=== PATIENT | female | born 1940 | race African-American/Black ===

== ENCOUNTER 2016-11-17 16:17 | Inpatient (IN) | payer MEDICARE, MEDICAID ==
[~2016-11-17] VITALS: Ht 167.6 cm; Wt 113.2 kg
[~2016-11-17 16:17] MED LIST: CARV6.2548 PO; DIGO125T82 PO; IOHEXOL-350 100 ML BOTTLE ONE; OMEP20CA10 PO; SIMV20TA6 PO; SODIUM CHLORIDE 0.9% 10ML VIAL ONE; SPIR25TA4 PO; WARF4TAB39 PO
[2016-11-17 16:30] VITALS: BP 135/107
[2016-11-17 16:57] VITALS: BP 135/107
[2016-11-17] MEDS ORDERED: CARV12.545 PO (17:04)
[2016-11-17] MEDS ORDERED: IPRATROPIUM/ALBUTEROL 0.5-3(2.5)MG/3ML NEB HHN PRN (17:15)
[2016-11-17] MEDS: CARVEDILOL 12.5MG TABLET PO SCH ×2 (18:48→21:00)
[2016-11-17 19:35] LABS: D-DIMER 2.51 mg/L FEU (<0.50); INR 1.6; PROTHROMBIN TIME 16.8 sec
[2016-11-17 19:40] LABS: BASOPHILS % 0.3 % (0.0-2.0); EOSINOPHILS % 0.3 % (0.0-5.0); HEMATOCRIT. 47.7 % (36.0-48.0); HEMOGLOBIN. 15.7 g/dL (12.0-16.0); LYMPHOCYTES % 39.6 % (20.0-50.0); MEAN CORPUSCULAR HEMOGLOBIN 30.8 pg (28.0-32.0); MEAN CORPUSCULAR VOLUME 93.7 fL (81.0-99.0); MEAN PLATELET VOLUME 10.7 fl (7.4-10.4); MONOCYTES % 7.4 % (2.0-8.0); NEUTROPHILS % 52.4 % (40.0-76.0); PLATELET 126 x1000/uL (130-400); RED BLOOD CELL COUNT 5.09 mill/uL (4.2-5.4); RED CELL DISTRIBUTION WIDTH 13.8 % (11.6-14.6)
[2016-11-17 19:48] LABS: CARBON DIOXIDE 32 mEq/L (21-32); CHLORIDE 104 mEq/L (98-107); HDL CHOLESTEROL 42 mg/dL (40-59); LDL CHOLESTEROL 75 mg/dL (5-100); TROPONIN I 0.03 ng/mL (0.00-0.04)
[2016-11-17 20:00] VITALS: BP 97/58
[2016-11-17] MEDS ORDERED: WARFARIN SODIUM 4MG TABLET PO SCH (20:03)
[2016-11-17] MEDS ORDERED: MEDICATION NOT ON FORMULARY EA (Simvastatin 20 MG) PO SCH (21:00)
[2016-11-17] MEDS: ATORVASTATIN CALCIUM 10MG TABLET PO SCH (21:34)
[2016-11-17] MEDS ORDERED: WARFARIN SODIUM 2MG TABLET PO SCH (21:53)
[2016-11-18] VITALS: BP 90/67
[2016-11-18 00:09] LABS: CLARITY URINE CLEAR (CLEAR); COLOR URINE YELLOW (YELLOW); GLUCOSE URINE NEGATIVE (NEGATIVE); KETONES URINE NEGATIVE (NEGATIVE); LEUKOCYTE ESTERASE URINE NEGATIVE (NEGATIVE); NITRITE URINE NEGATIVE (NEGATIVE); OCCULT BLOOD URINE NEGATIVE (NEGATIVE); PH URINE 5.5 (4.5-8.0); PROTEIN URINE NEGATIVE (NEGATIVE); SPECIFIC GRAVITY URINE 1.011 (1.005-1.030); UROBILINOGEN URINE 0.2 E.U./dL (0.2-1.0)
[2016-11-18] MEDS ORDERED: WARFARIN SODIUM 2MG TABLET PO NR (01:12)
[2016-11-18] MEDS ORDERED: ENOXAPARIN 100MG/ML SYR SUBCUT SCH (01:30)
[2016-11-18 04:00] VITALS: BP 123/83
[2016-11-18] MEDS: OMEPRAZOLE 20MG CAPSULE EXTENDED RELEASE PO SCH (06:09)
[2016-11-18 06:10] LABS: INR 1.7
[2016-11-18 07:53] LABS: BASOPHILS % 0.3 % (0.0-2.0); EOSINOPHILS % 0.5 % (0.0-5.0); HEMATOCRIT. 46.8 % (36.0-48.0); HEMOGLOBIN. 15.4 g/dL (12.0-16.0); LYMPHOCYTES % 48.4 % (20.0-50.0); MEAN CORPUSCULAR HEMOGLOBIN 30.7 pg (28.0-32.0); MEAN CORPUSCULAR VOLUME 93.3 fL (81.0-99.0); MEAN PLATELET VOLUME 11.3 fl (7.4-10.4); MONOCYTES % 7.6 % (2.0-8.0); NEUTROPHILS % 43.2 % (40.0-76.0); PLATELET 131 x1000/uL (130-400); RED BLOOD CELL COUNT 5.02 mill/uL (4.2-5.4)
[2016-11-18 07:59] LABS: CARBON DIOXIDE 28 mEq/L (21-32); CHLORIDE 104 mEq/L (98-107)
[2016-11-18 08:00] VITALS: BP 115/73
[2016-11-18 08:46] LABS: BG BASE EXCESS 1.6 mmol/L (-2.0-2.0); BG CARBOXYHEMOGLOBIN 0.8 % (0.5-1.5); BG DEOXYHEMOGLOBIN 1.8 % (0.0-5.0); BG FRACTION INSPIRED OXYGEN 28; BG METHEMOGLOBIN 0.4 % (0.0-1.5); BG OXYGEN SATURATION 98.2 % (92.0-98.5); BG PCO2 56.4 mmHg (35.0-45.0); BG PH 7.329 (7.350-7.450); BG PO2 118.4 mmHg (75.0-100.0); BG SAMPLE SITE RIGHT BRACHIAL; BG TOTAL HEMOGLOBIN 16.1 g/dL (12.0-18.0); BG VENT MODE NASAL CANNULA
[2016-11-18] MEDS: SPIRONOLACTONE 25MG TABLET PO SCH (08:56)
[2016-11-18] MEDS: CARVEDILOL 12.5MG TABLET PO SCH ×2 (08:57→20:28)
[2016-11-18 12:00] VITALS: BP 110/67
[2016-11-18 16:00] VITALS: BP 111/70
[2016-11-18] MEDS: APIXABAN 5 MG TABLET PO SCH (16:56)
[2016-11-18 20:00] VITALS: BP 105/67
[2016-11-18] MEDS: ATORVASTATIN CALCIUM 10MG TABLET PO SCH (20:27)
[2016-11-19] VITALS: BP 143/80
[2016-11-19 04:00] VITALS: BP 122/83
[2016-11-19] MEDS: OMEPRAZOLE 20MG CAPSULE EXTENDED RELEASE PO SCH (05:45)
[2016-11-19 07:10] LABS: BASOPHILS % 0.5 % (0.0-2.0); EOSINOPHILS % 1.2 % (0.0-5.0); HEMATOCRIT. 44.8 % (36.0-48.0); HEMOGLOBIN. 14.9 g/dL (12.0-16.0); LYMPHOCYTES % 57.5 % (20.0-50.0); MEAN CORPUSCULAR HEMOGLOBIN 31.1 pg (28.0-32.0); MEAN CORPUSCULAR VOLUME 93.5 fL (81.0-99.0); MEAN PLATELET VOLUME 10.9 fl (7.4-10.4); MONOCYTES % 10.3 % (2.0-8.0); NEUTROPHILS % 30.5 % (40.0-76.0); PLATELET 113 x1000/uL (130-400); RED BLOOD CELL COUNT 4.79 mill/uL (4.2-5.4)
[2016-11-19 08:00] VITALS: BP 105/79
[2016-11-19 08:33] LABS: CARBON DIOXIDE 27 mEq/L (21-32); CHLORIDE 103 mEq/L (98-107); TROPONIN I 0.02 ng/mL (0.00-0.04)
[2016-11-19] MEDS: SPIRONOLACTONE 25MG TABLET PO SCH (08:35)
[2016-11-19] MEDS: CARVEDILOL 12.5MG TABLET PO SCH ×2 (08:36→20:48)
[2016-11-19] MEDS: APIXABAN 5 MG TABLET PO SCH ×2 (08:36→16:45)
[2016-11-19 16:00] VITALS: BP 103/64
[2016-11-19 20:00] VITALS: BP 125/81
[2016-11-19] MEDS: ATORVASTATIN CALCIUM 10MG TABLET PO SCH (20:48)
[2016-11-20] VITALS: BP 121/64
[2016-11-20 04:00] VITALS: BP 101/57
[2016-11-20 05:29] LABS: PROTHROMBIN TIME 20.5 sec
[2016-11-20] MEDS: OMEPRAZOLE 20MG CAPSULE EXTENDED RELEASE PO SCH (06:18)
[2016-11-20 06:26] LABS: CARBON DIOXIDE 31 mEq/L (21-32); CHLORIDE 99 mEq/L (98-107)
[2016-11-20 06:37] LABS: BASOPHILS % 0.2 % (0.0-2.0); EOSINOPHILS % 0.6 % (0.0-5.0); HEMATOCRIT. 45.9 % (36.0-48.0); HEMOGLOBIN. 15.2 g/dL (12.0-16.0); LYMPHOCYTES % 9.9 % (20.0-50.0); MEAN CORPUSCULAR HEMOGLOBIN 31.2 pg (28.0-32.0); MEAN CORPUSCULAR VOLUME 94.1 fL (81.0-99.0); MEAN PLATELET VOLUME 11.1 fl (7.4-10.4); NEUTROPHILS % 81.3 % (40.0-76.0); PLATELET 108 x1000/uL (130-400); RED BLOOD CELL COUNT 4.87 mill/uL (4.2-5.4); RED CELL DISTRIBUTION WIDTH 14.1 % (11.6-14.6)
[2016-11-20 08:00] VITALS: BP 116/68
[2016-11-20] MEDS ORDERED: ONDANSETRON HCL 4MG/2ML VIAL IV PRN ×2 (08:15→10:30)
[2016-11-20] MEDS: APIXABAN 5 MG TABLET PO SCH ×2 (08:28→16:48)
[2016-11-20] MEDS: SPIRONOLACTONE 25MG TABLET PO SCH (08:28)
[2016-11-20] MEDS: ACETAMINOPHEN 500MG TABLET PO PRN ×2 (08:28→16:48)
[2016-11-20] MEDS: CARVEDILOL 12.5MG TABLET PO SCH ×2 (09:00→20:12)
[2016-11-20] MEDS ORDERED: ONDANSETRON HCL 4MG/2ML VIAL IV NR (10:30)
[2016-11-20 12:09] VITALS: BP 110/82
[2016-11-20 16:00] VITALS: BP 103/67
[2016-11-20] MEDS ORDERED: TRAMADOL 50MG TABLET PO PRN (18:15)
[2016-11-20 20:00] VITALS: BP 97/59
[2016-11-20] MEDS: ATORVASTATIN CALCIUM 10MG TABLET PO SCH (20:14)
[2016-11-21] VITALS (12 sets, daily range): BP systolic 85–141; BP diastolic 53–82
[2016-11-21] MEDS: OMEPRAZOLE 20MG CAPSULE EXTENDED RELEASE PO SCH (06:20)
[2016-11-21 06:42] LABS: INR 1.7; PROTHROMBIN TIME 17.4 sec
[2016-11-21 07:00] LABS: CARBON DIOXIDE 33 mEq/L (21-32); CHLORIDE 98 mEq/L (98-107)
[2016-11-21] MEDS: ACETAMINOPHEN 325MG TABLET PO PRN ×2 (07:14→18:15)
[2016-11-21 07:31] LABS: HEMATOCRIT. 46.4 % (36.0-48.0); HEMOGLOBIN. 15.4 g/dL (12.0-16.0); MEAN CORPUSCULAR HEMOGLOBIN 30.9 pg (28.0-32.0); MEAN CORPUSCULAR VOLUME 93.5 fL (81.0-99.0); MEAN PLATELET VOLUME 11.2 fl (7.4-10.4); PLATELET 97 x1000/uL (130-400); RED BLOOD CELL COUNT 4.97 mill/uL (4.2-5.4); RED CELL DISTRIBUTION WIDTH 13.9 % (11.6-14.6)
[2016-11-21] MEDS ORDERED: SODIUM CHLORIDE 0.9% 500 ML IV ONE (08:45)
[2016-11-21 09:05] LABS: PLATELET ESTIMATE DECREASED
[2016-11-21 09:44] LABS: BG BASE EXCESS -0.4 mmol/L (-2.0-2.0); BG CARBOXYHEMOGLOBIN 0.5 % (0.5-1.5); BG DEOXYHEMOGLOBIN 8.9 % (0.0-5.0); BG FRACTION INSPIRED OXYGEN 21; BG METHEMOGLOBIN 0.4 % (0.0-1.5); BG OXYHEMOGLOBIN 90.2 % (94.0-97.0); BG PH 7.343 (7.350-7.450); BG PO2 59.1 mmHg (75.0-100.0); BG SAMPLE SITE RIGHT RADIAL; BG TOTAL HEMOGLOBIN 15.4 g/dL (12.0-18.0); BG VENT MODE ROOM AIR
[2016-11-21] MEDS ORDERED: SODIUM POLYSTYRENE SULFONATE 15 G/60 ML BOT PO NR (10:00)
[2016-11-21] MEDS ORDERED: SODIUM CHLORIDE 0.45% 1,000 ML IV SCH (10:15)
[2016-11-21] MEDS: APIXABAN 5 MG TABLET PO SCH ×2 (10:35→18:03)
[2016-11-21] MEDS: DEXT 5%/0.9% NACL 1,000 ML IV SCH (12:52)
[2016-11-21] MEDS: PIPERACILLIN/TAZ 3.375G PREMIX 50 ML IV SCH ×3 (13:27→23:05)
[2016-11-21] MEDS: METRONIDAZOLE 500 MG PREMIX 100 ML IV SCH ×2 (15:56→21:26)
[2016-11-21] MEDS: ATORVASTATIN CALCIUM 10MG TABLET PO SCH (21:22)
[2016-11-22] VITALS (16 sets, daily range): BP systolic 75–120; BP diastolic 36–78
[2016-11-22] MEDS: DEXT 5%/0.9% NACL 1,000 ML IV SCH ×3 (01:44→17:14)
[2016-11-22] MEDS: PIPERACILLIN/TAZ 3.375G PREMIX 50 ML IV SCH ×4 (05:16→23:51)
[2016-11-22] MEDS: METRONIDAZOLE 500 MG PREMIX 100 ML IV SCH ×3 (06:01→21:06)
[2016-11-22 06:35] LABS: HEMATOCRIT. 42.9 % (36.0-48.0); HEMOGLOBIN. 14.3 g/dL (12.0-16.0); INR 1.6; MEAN CORPUSCULAR HEMOGLOBIN 31.1 pg (28.0-32.0); MEAN CORPUSCULAR VOLUME 93.3 fL (81.0-99.0); MEAN PLATELET VOLUME 10.6 fl (7.4-10.4); PLATELET 74 x1000/uL (130-400); PROTHROMBIN TIME 17.1 sec; RED CELL DISTRIBUTION WIDTH 13.8 % (11.6-14.6)
[2016-11-22] MEDS: ACETAMINOPHEN 325MG TABLET PO PRN (06:46)
[2016-11-22] MEDS: OMEPRAZOLE 20MG CAPSULE EXTENDED RELEASE PO SCH (06:46)
[2016-11-22 06:54] LABS: CARBON DIOXIDE 32 mEq/L (21-32); CHLORIDE 99 mEq/L (98-107)
[2016-11-22] MEDS: APIXABAN 5 MG TABLET PO SCH ×2 (08:52→17:14)
[2016-11-22 10:46] LABS: PLATELET ESTIMATE DECREASED
[2016-11-22 13:08] LABS: CLARITY URINE CLOUDY (CLEAR); COLOR URINE DARK YELLOW (YELLOW); GLUCOSE URINE NEGATIVE (NEGATIVE); KETONES URINE NEGATIVE (NEGATIVE); LEUKOCYTE ESTERASE URINE NEGATIVE (NEGATIVE); NITRITE URINE NEGATIVE (NEGATIVE); OCCULT BLOOD URINE NEGATIVE (NEGATIVE); PH URINE 5.5 (4.5-8.0); PROTEIN URINE 1+ (NEGATIVE); SPECIFIC GRAVITY URINE 1.031 (1.005-1.030); UROBILINOGEN URINE 0.2 E.U./dL (0.2-1.0)
[2016-11-22] MEDS: ATORVASTATIN CALCIUM 10MG TABLET PO SCH (21:05)
[2016-11-23] VITALS (12 sets, daily range): BP systolic 100–144; BP diastolic 53–90
[2016-11-23] MEDS: METRONIDAZOLE 500 MG PREMIX 100 ML IV SCH ×3 (06:04→21:18)
[2016-11-23] MEDS: OMEPRAZOLE 20MG CAPSULE EXTENDED RELEASE PO SCH (06:10)
[2016-11-23 06:31] LABS: CARBON DIOXIDE 30 mEq/L (21-32); CHLORIDE 105 mEq/L (98-107)
[2016-11-23 06:51] LABS: HEMOGLOBIN. 14.6 g/dL (12.0-16.0); MEAN CORPUSCULAR HEMOGLOBIN 30.9 pg (28.0-32.0); MEAN CORPUSCULAR VOLUME 93.1 fL (81.0-99.0); MEAN PLATELET VOLUME 10.7 fl (7.4-10.4); PLATELET 78 x1000/uL (130-400); RED BLOOD CELL COUNT 4.73 mill/uL (4.2-5.4); RED CELL DISTRIBUTION WIDTH 13.6 % (11.6-14.6)
[2016-11-23] MEDS: PIPERACILLIN/TAZ 3.375G PREMIX 50 ML IV SCH ×2 (07:24→12:14)
[2016-11-23] MEDS: APIXABAN 5 MG TABLET PO SCH ×2 (08:55→17:02)
[2016-11-23] MEDS: DEXT 5%/0.9% NACL 1,000 ML IV SCH (12:14)
[2016-11-23] MEDS: IPRATROPIUM/ALBUTEROL 0.5-3(2.5)MG/3ML NEB HHN SCH ×3 (12:24→21:23)
[2016-11-23 13:27] LABS: PLATELET ESTIMATE DECREASED
[2016-11-23] MEDS: CEFTRIAXONE 1 G PREMIX 50 ML IV SCH (15:56)
[2016-11-23] MEDS: ZINC OXIDE 20% OINT 30GM TOP SCH (17:03)
[2016-11-23] MEDS: ATORVASTATIN CALCIUM 10MG TABLET PO SCH (21:17)
[2016-11-23] MEDS: HYDROCORTISONE 2.5% RECTAL CREAM 30GM PR SCH (21:18)
[2016-11-24] VITALS (13 sets, daily range): BP systolic 107–140; BP diastolic 58–86
[2016-11-24] MEDS: IPRATROPIUM/ALBUTEROL 0.5-3(2.5)MG/3ML NEB HHN SCH ×6 (00:38→21:06)
[2016-11-24] MEDS: OMEPRAZOLE 20MG CAPSULE EXTENDED RELEASE PO SCH (06:37)
[2016-11-24] MEDS: METRONIDAZOLE 500 MG PREMIX 100 ML IV SCH ×2 (06:37→15:51)
[2016-11-24 07:19] LABS: CARBON DIOXIDE 32 mEq/L (21-32); CHLORIDE 106 mEq/L (98-107)
[2016-11-24] MEDS: APIXABAN 5 MG TABLET PO SCH ×2 (08:23→17:00)
[2016-11-24] MEDS: LACTOBACILLUS GG CAPSULE PO SCH (08:23)
[2016-11-24] MEDS: AZITHROMYCIN 500 MG TABLET PO SCH (08:23)
[2016-11-24] MEDS: HYDROCORTISONE 2.5% RECTAL CREAM 30GM PR SCH ×2 (08:24→20:58)
[2016-11-24] MEDS: ZINC OXIDE 20% OINT 30GM TOP SCH ×2 (08:24→17:00)
[2016-11-24] MEDS ORDERED: COLESEVELAM HCL 625MG TABLET PO SCH (09:00)
[2016-11-24] MEDS ORDERED: POTASSIUM CHLORIDE 20MEQ/PACKET PO NR (13:15)
[2016-11-24] MEDS: CEFTRIAXONE 1 G PREMIX 50 ML IV SCH (15:50)
[2016-11-24] MEDS ORDERED: BISMUTH SUBSALICYLATE 262 MG/15 ML-120ML BOTTLE PO PRN (18:30)
[2016-11-24] MEDS: ATORVASTATIN CALCIUM 10MG TABLET PO SCH (20:58)
[2016-11-25] VITALS: BP 135/83
[2016-11-25] MEDS: IPRATROPIUM/ALBUTEROL 0.5-3(2.5)MG/3ML NEB HHN SCH ×6 (00:05→20:32)
[2016-11-25] MEDS: DEXT 5%/0.9% NACL 1,000 ML IV SCH (02:52)
[2016-11-25 04:00] VITALS: BP 128/72
[2016-11-25 06:51] LABS: CARBON DIOXIDE 30 mEq/L (21-32); CHLORIDE 104 mEq/L (98-107)
[2016-11-25] MEDS: OMEPRAZOLE 20MG CAPSULE EXTENDED RELEASE PO SCH (07:10)
[2016-11-25 07:15] LABS: HEMATOCRIT. 42.8 % (36.0-48.0); HEMOGLOBIN. 14.2 g/dL (12.0-16.0); MEAN CORPUSCULAR HEMOGLOBIN 30.8 pg (28.0-32.0); MEAN CORPUSCULAR VOLUME 92.7 fL (81.0-99.0); MEAN PLATELET VOLUME 10.7 fl (7.4-10.4); PLATELET 72 x1000/uL (130-400); RED BLOOD CELL COUNT 4.62 mill/uL (4.2-5.4); RED CELL DISTRIBUTION WIDTH 13.7 % (11.6-14.6)
[2016-11-25 08:00] VITALS: BP 113/69
[2016-11-25] MEDS ORDERED: COLESEVELAM HCL 625MG TABLET PO SCH (09:00)
[2016-11-25] MEDS: APIXABAN 5 MG TABLET PO SCH ×2 (09:28→17:47)
[2016-11-25] MEDS: ZINC OXIDE 20% OINT 30GM TOP SCH ×2 (09:28→17:50)
[2016-11-25] MEDS: AZITHROMYCIN 500 MG TABLET PO SCH (09:28)
[2016-11-25] MEDS: LACTOBACILLUS GG CAPSULE PO SCH (09:28)
[2016-11-25] MEDS: CITALOPRAM HYDROBROMIDE 10MG TABLET PO SCH (09:28)
[2016-11-25] MEDS: HYDROCORTISONE 2.5% RECTAL CREAM 30GM PR SCH ×2 (09:29→21:52)
[2016-11-25] MEDS: TRAMADOL 50MG TABLET PO PRN ×2 (11:55→20:26)
[2016-11-25 12:00] VITALS: BP 135/83
[2016-11-25 12:56] LABS: PLATELET ESTIMATE DECREASED
[2016-11-25 16:00] VITALS: BP 141/103
[2016-11-25 20:00] VITALS: BP 134/88
[2016-11-25] MEDS: ATORVASTATIN CALCIUM 10MG TABLET PO SCH (20:22)
[2016-11-26] VITALS (7 sets, daily range): BP systolic 125–181; BP diastolic 79–119
[2016-11-26] MEDS: IPRATROPIUM/ALBUTEROL 0.5-3(2.5)MG/3ML NEB HHN SCH ×6 (00:35→21:18)
[2016-11-26] MEDS: DEXT 5%/0.9% NACL 1,000 ML IV SCH (04:28)
[2016-11-26] MEDS: OMEPRAZOLE 20MG CAPSULE EXTENDED RELEASE PO SCH (08:40)
[2016-11-26] MEDS: CITALOPRAM HYDROBROMIDE 10MG TABLET PO SCH (08:41)
[2016-11-26] MEDS: APIXABAN 5 MG TABLET PO SCH ×2 (08:42→17:46)
[2016-11-26] MEDS: AZITHROMYCIN 500 MG TABLET PO SCH (08:42)
[2016-11-26] MEDS: HYDROCORTISONE 2.5% RECTAL CREAM 30GM PR SCH ×2 (08:43→21:20)
[2016-11-26] MEDS: ZINC OXIDE 20% OINT 30GM TOP SCH ×2 (08:47→17:48)
[2016-11-26] MEDS: LACTOBACILLUS GG CAPSULE PO SCH (08:53)
[2016-11-26] MEDS: ATORVASTATIN CALCIUM 10MG TABLET PO SCH (21:20)
[2016-11-27] VITALS: BP 153/96
[2016-11-27] MEDS: IPRATROPIUM/ALBUTEROL 0.5-3(2.5)MG/3ML NEB HHN SCH ×6 (00:51→21:24)
[2016-11-27 04:00] VITALS: BP 133/76
[2016-11-27 06:51] LABS: BASOPHILS % 0.2 % (0.0-2.0); EOSINOPHILS % 0.3 % (0.0-5.0); HEMATOCRIT. 43.8 % (36.0-48.0); HEMOGLOBIN. 14.6 g/dL (12.0-16.0); LYMPHOCYTES % 49.1 % (20.0-50.0); MEAN CORPUSCULAR HEMOGLOBIN 30.8 pg (28.0-32.0); MEAN CORPUSCULAR VOLUME 92.4 fL (81.0-99.0); MEAN PLATELET VOLUME 10.5 fl (7.4-10.4); NEUTROPHILS % 39.4 % (40.0-76.0); PLATELET 93 x1000/uL (130-400); RED BLOOD CELL COUNT 4.75 mill/uL (4.2-5.4); RED CELL DISTRIBUTION WIDTH 13.8 % (11.6-14.6)
[2016-11-27] MEDS: OMEPRAZOLE 20MG CAPSULE EXTENDED RELEASE PO SCH (07:06)
[2016-11-27 08:00] VITALS: BP 150/90
[2016-11-27 08:11] LABS: CARBON DIOXIDE 28 mEq/L (21-32); CHLORIDE 105 mEq/L (98-107)
[2016-11-27] MEDS: ZINC OXIDE 20% OINT 30GM TOP SCH ×2 (09:00→17:00)
[2016-11-27] MEDS: LACTOBACILLUS GG CAPSULE PO SCH (09:48)
[2016-11-27] MEDS: APIXABAN 5 MG TABLET PO SCH ×2 (09:48→18:09)
[2016-11-27] MEDS: LEVOFLOXACIN 250MG TABLET PO SCH (09:49)
[2016-11-27] MEDS: HYDROCORTISONE 2.5% RECTAL CREAM 30GM PR SCH ×2 (09:49→20:49)
[2016-11-27] MEDS: CITALOPRAM HYDROBROMIDE 10MG TABLET PO SCH (09:49)
[2016-11-27 12:00] VITALS: BP 155/96
[2016-11-27 12:04] LABS: CLARITY URINE CLEAR (CLEAR); COLOR URINE YELLOW (YELLOW); GLUCOSE URINE NEGATIVE (NEGATIVE); KETONES URINE NEGATIVE (NEGATIVE); LEUKOCYTE ESTERASE URINE NEGATIVE (NEGATIVE); NITRITE URINE NEGATIVE (NEGATIVE); OCCULT BLOOD URINE NEGATIVE (NEGATIVE); PROTEIN URINE TRACE (NEGATIVE); SPECIFIC GRAVITY URINE 1.011 (1.005-1.030); UROBILINOGEN URINE 0.2 E.U./dL (0.2-1.0)
[2016-11-27 16:00] VITALS: BP 144/84
[2016-11-27 20:00] VITALS: BP 152/90
[2016-11-27] MEDS: ATORVASTATIN CALCIUM 10MG TABLET PO SCH (20:46)
[2016-11-28] VITALS: BP 141/88
[2016-11-28] MEDS: IPRATROPIUM/ALBUTEROL 0.5-3(2.5)MG/3ML NEB HHN SCH ×5 (01:16→21:24)
[2016-11-28 04:00] VITALS: BP 163/88
[2016-11-28 06:03] LABS: HEMATOCRIT. 42.2 % (36.0-48.0); MEAN CORPUSCULAR HEMOGLOBIN 30.7 pg (28.0-32.0); MEAN CORPUSCULAR VOLUME 92.3 fL (81.0-99.0); MEAN PLATELET VOLUME 10.5 fl (7.4-10.4); PLATELET 105 x1000/uL (130-400); RED BLOOD CELL COUNT 4.57 mill/uL (4.2-5.4); RED CELL DISTRIBUTION WIDTH 13.8 % (11.6-14.6)
[2016-11-28] MEDS: OMEPRAZOLE 20MG CAPSULE EXTENDED RELEASE PO SCH (06:34)
[2016-11-28 07:43] LABS: CARBON DIOXIDE 31 mEq/L (21-32); CHLORIDE 102 mEq/L (98-107)
[2016-11-28 08:00] VITALS: BP 129/79
[2016-11-28] MEDS ORDERED: POTASSIUM CHLORIDE 20MEQ TABLET SR PO SCH (08:15)
[2016-11-28] MEDS ORDERED: FLUCONAZOLE 150MG TABLET PO SCH (09:00)
[2016-11-28] MEDS ORDERED: MAGNESIUM 1 G PREMIX 100 ML IV SCH (09:00)
[2016-11-28] MEDS: APIXABAN 5 MG TABLET PO SCH ×2 (09:37→16:52)
[2016-11-28] MEDS: SPIRONOLACTONE 25MG TABLET PO SCH (09:37)
[2016-11-28] MEDS: HYDROCORTISONE 2.5% RECTAL CREAM 30GM PR SCH ×2 (09:55→21:30)
[2016-11-28] MEDS: LACTOBACILLUS GG CAPSULE PO SCH (10:06)
[2016-11-28] MEDS ORDERED: FUROSEMIDE 40MG TABLET PO SCH (11:15)
[2016-11-28] MEDS ORDERED: CARVEDILOL 3.125 MG TABLET PO ONE (11:15)
[2016-11-28] MEDS: ZINC OXIDE 20% OINT 30GM TOP SCH ×2 (11:23→16:53)
[2016-11-28] MEDS: POTASSIUM CHLORIDE 20MEQ TABLET SR PO SCH ×2 (11:23→16:52)
[2016-11-28] MEDS: CITALOPRAM HYDROBROMIDE 10MG TABLET PO SCH (11:24)
[2016-11-28] MEDS: LEVOFLOXACIN 250MG TABLET PO SCH (11:24)
[2016-11-28] MEDS ORDERED: CLONIDINE 0.1MG TABLET PO PRN (11:30)
[2016-11-28 12:02] VITALS: BP 141/80
[2016-11-28 13:43] LABS: PLATELET ESTIMATE DECREASED
[2016-11-28 16:00] VITALS: BP 142/91
[2016-11-28 20:00] VITALS: BP 155/98
[2016-11-28] MEDS: ATORVASTATIN CALCIUM 10MG TABLET PO SCH (21:29)
[2016-11-28] MEDS: FUROSEMIDE 40MG TABLET PO SCH (21:29)
[2016-11-28] MEDS: CARVEDILOL 3.125 MG TABLET PO SCH (21:29)
[2016-11-29] VITALS: BP 134/86
[2016-11-29] MEDS: IPRATROPIUM/ALBUTEROL 0.5-3(2.5)MG/3ML NEB HHN SCH ×6 (01:07→21:22)
[2016-11-29 04:00] VITALS: BP 117/67
[2016-11-29 05:59] LABS: CARBON DIOXIDE 30 mEq/L (21-32); CHLORIDE 100 mEq/L (98-107)
[2016-11-29] MEDS: OMEPRAZOLE 20MG CAPSULE EXTENDED RELEASE PO SCH (06:39)
[2016-11-29 07:59] LABS: BASOPHILS % 0.1 % (0.0-2.0); EOSINOPHILS % 0.4 % (0.0-5.0); HEMOGLOBIN. 13.9 g/dL (12.0-16.0); LYMPHOCYTES % 39.6 % (20.0-50.0); MEAN CORPUSCULAR HEMOGLOBIN 30.9 pg (28.0-32.0); MEAN CORPUSCULAR VOLUME 91.4 fL (81.0-99.0); MEAN PLATELET VOLUME 10.8 fl (7.4-10.4); MONOCYTES % 12.3 % (2.0-8.0); NEUTROPHILS % 47.6 % (40.0-76.0); PLATELET 106 x1000/uL (130-400); RED BLOOD CELL COUNT 4.48 mill/uL (4.2-5.4)
[2016-11-29 08:00] VITALS: BP 134/93
[2016-11-29] MEDS: HYDROCORTISONE 2.5% RECTAL CREAM 30GM PR SCH ×2 (09:00→21:00)
[2016-11-29] MEDS: LACTOBACILLUS GG CAPSULE PO SCH (09:13)
[2016-11-29] MEDS: FUROSEMIDE 40MG TABLET PO SCH ×2 (09:14→21:50)
[2016-11-29] MEDS: POTASSIUM CHLORIDE 20MEQ TABLET SR PO SCH ×2 (09:14→18:18)
[2016-11-29] MEDS: SPIRONOLACTONE 25MG TABLET PO SCH (09:14)
[2016-11-29] MEDS: CARVEDILOL 3.125 MG TABLET PO SCH ×2 (09:14→21:50)
[2016-11-29] MEDS: ZINC OXIDE 20% OINT 30GM TOP SCH ×2 (09:15→18:19)
[2016-11-29] MEDS ORDERED: MAGNESIUM 2 G PREMIX 50 ML IV NR (10:00)
[2016-11-29] MEDS: LEVOFLOXACIN 250MG TABLET PO SCH (11:26)
[2016-11-29 12:00] VITALS: BP 136/88
[2016-11-29] MEDS: CITALOPRAM HYDROBROMIDE 10MG TABLET PO SCH (12:12)
[2016-11-29 16:00] VITALS: BP 129/98
[2016-11-29 20:00] VITALS: BP 147/90
[2016-11-29] MEDS: ATORVASTATIN CALCIUM 10MG TABLET PO SCH (21:49)
[2016-11-30] VITALS: BP 168/95
[2016-11-30] MEDS: IPRATROPIUM/ALBUTEROL 0.5-3(2.5)MG/3ML NEB HHN SCH ×6 (01:21→21:24)
[2016-11-30 04:00] VITALS: BP 111/61
[2016-11-30] MEDS: OMEPRAZOLE 20MG CAPSULE EXTENDED RELEASE PO SCH (05:40)
[2016-11-30 08:00] VITALS: BP 98/58
[2016-11-30 08:30] VITALS: BP 115/74
[2016-11-30] MEDS: ZINC OXIDE 20% OINT 30GM TOP SCH ×2 (09:00→17:00)
[2016-11-30] MEDS: CARVEDILOL 3.125 MG TABLET PO SCH ×2 (09:00→21:05)
[2016-11-30] MEDS: HYDROCORTISONE 2.5% RECTAL CREAM 30GM PR SCH ×2 (09:00→21:00)
[2016-11-30] MEDS: SPIRONOLACTONE 25MG TABLET PO SCH (09:21)
[2016-11-30] MEDS: POTASSIUM CHLORIDE 20MEQ TABLET SR PO SCH (09:21)
[2016-11-30] MEDS: FUROSEMIDE 40MG TABLET PO SCH (09:22)
[2016-11-30] MEDS: CITALOPRAM HYDROBROMIDE 10MG TABLET PO SCH (09:22)
[2016-11-30] MEDS: LACTOBACILLUS GG CAPSULE PO SCH (09:22)
[2016-11-30] MEDS: LEVOFLOXACIN 250MG TABLET PO SCH (10:53)
[2016-11-30 12:00] VITALS: BP 131/85
[2016-11-30] MEDS ORDERED: APIXABAN 5 MG TABLET PO SCH (17:00)
[2016-11-30] MEDS: APIXABAN 5 MG TABLET PO SCH ×2 (17:29→17:31)
[2016-11-30 20:00] VITALS: BP 119/76
[2016-11-30] MEDS: ATORVASTATIN CALCIUM 10MG TABLET PO SCH (21:05)
[2016-12-01] VITALS (7 sets, daily range): BP systolic 89–125; BP diastolic 16–84
[2016-12-01] MEDS: IPRATROPIUM/ALBUTEROL 0.5-3(2.5)MG/3ML NEB HHN SCH ×6 (01:23→20:58)
[2016-12-01] MEDS: OMEPRAZOLE 20MG CAPSULE EXTENDED RELEASE PO SCH (05:37)
[2016-12-01 08:13] LABS: CARBON DIOXIDE 31 mEq/L (21-32); CHLORIDE 96 mEq/L (98-107)
[2016-12-01] MEDS: HYDROCORTISONE 2.5% RECTAL CREAM 30GM PR SCH (09:00)
[2016-12-01] MEDS: ZINC OXIDE 20% OINT 30GM TOP SCH ×2 (09:00→17:00)
[2016-12-01] MEDS: CITALOPRAM HYDROBROMIDE 10MG TABLET PO SCH (09:35)
[2016-12-01] MEDS: CARVEDILOL 3.125 MG TABLET PO SCH (09:36)
[2016-12-01] MEDS: LACTOBACILLUS GG CAPSULE PO SCH (09:36)
[2016-12-01] MEDS: SPIRONOLACTONE 25MG TABLET PO SCH (09:36)
[2016-12-01] MEDS: APIXABAN 5 MG TABLET PO SCH ×2 (09:37→17:47)
[2016-12-01] MEDS: LEVOFLOXACIN 250MG TABLET PO SCH (11:04)
[2016-12-01 11:29] LABS: GLUCOSE URINE NEGATIVE (NEGATIVE); KETONES URINE NEGATIVE (NEGATIVE); LEUKOCYTE ESTERASE URINE NEGATIVE (NEGATIVE); NITRITE URINE NEGATIVE (NEGATIVE); OCCULT BLOOD URINE 3+ (NEGATIVE); PROTEIN URINE TRACE (NEGATIVE); SPECIFIC GRAVITY URINE 1.009 (1.005-1.030); UROBILINOGEN URINE 0.2 E.U./dL (0.2-1.0)
[2016-12-01 11:51] LABS: CLARITY URINE CLOUDY (CLEAR); COLOR URINE DARK YELLOW (YELLOW)
[2016-12-01] MEDS ORDERED: MAGNESIUM 2 G PREMIX 50 ML IV NR (19:00)
[2016-12-07] MEDS ORDERED: APIXABAN 5 MG TABLET PO SCH (09:00)
== END 2016-12-01 21:45 | DRG 871 ==
LOC: 5WST 16:17 → 5EST 11-21 12:29 → 5WST 11-24 23:12
PROVIDERS: ADMIT Internal Medicine; ATTEND Internal Medicine
DX: A41.9 Sepsis, unspecified organism (principal); I26.99 Other pulmonary embolism without acute cor pulmonale; J18.1 Lobar pneumonia, unspecified organism; J96.01 Acute respiratory failure with hypoxia; R65.21 Severe sepsis with septic shock; I50.22 Chronic systolic (congestive) heart failure; I42.0 Dilated cardiomyopathy; I27.82 Chronic pulmonary embolism; Z68.41 Body mass index [BMI] 40.0-44.9, adult; I48.1 Persistent atrial fibrillation; I82.91 Chronic embolism and thrombosis of unspecified vein; J44.0 Chronic obstructive pulmonary disease with (acute) lower respiratory infection; J44.1 Chronic obstructive pulmonary disease with (acute) exacerbation; N39.0 Urinary tract infection, site not specified; I25.5 Ischemic cardiomyopathy; I27.2 Other secondary pulmonary hypertension; I49.5 Sick sinus syndrome; T50.905A Adverse effect of unspecified drugs, medicaments and biological substances, initial encounter; F41.9 Anxiety disorder, unspecified; M19.90 Unspecified osteoarthritis, unspecified site; I11.0 Hypertensive heart disease with heart failure; D69.59 Other secondary thrombocytopenia; E83.42 Hypomagnesemia; E66.01 Morbid (severe) obesity due to excess calories; E78.5 Hyperlipidemia, unspecified; I73.9 Peripheral vascular disease, unspecified; E87.5 Hyperkalemia; E87.6 Hypokalemia; F32.9 Major depressive disorder, single episode, unspecified; I25.10 Atherosclerotic heart disease of native coronary artery without angina pectoris; I25.2 Old myocardial infarction; Z79.01 Long term (current) use of anticoagulants; Z95.810 Presence of automatic (implantable) cardiac defibrillator; Z79.899 Other long term (current) drug therapy; Z82.49 Family history of ischemic heart disease and other diseases of the circulatory system; Z86.73 Personal history of transient ischemic attack (TIA), and cerebral infarction without residual deficits; Z87.891 Personal history of nicotine dependence; Y92.89 Other specified places as the place of occurrence of the external cause
CPT/HCPCS: 36415; 36600; 70450; 71010; 71020; 71275; 80048; 80061; 81001; 81003; 82375; 82805; 83735; 83880; 84484; 85025; 85362; 85379; 85384; 85610; 85730; 87040; 87070; 87086; 87106; 87186; 87493; 87536; 93005; 93306; 93970; 94640; 97116; 97162; 97164; 97530; A4216; A6261; J0696; J1650; J2405; J2543; J3475; J3490; J7030; J7040; J7042; J7050; J7620; Q9967

== ENCOUNTER 2019-09-03 10:37 | Inpatient (IN) | payer OTHER, MEDICAID ==
[~2019-09-03] VITALS: Ht 172.7 cm; Wt 118.8 kg
[2019-09-03] VITALS (21 sets, daily range): BP systolic 97–152; BP diastolic 57–97
[~2019-09-03 10:37] MED LIST changes: +CARV12.545 PO; -CARV6.2548 PO; -DIGO125T82 PO; -IOHEXOL-350 100 ML BOTTLE ONE; -OMEP20CA10 PO; +OMEP20CA14 PO; +SIMV-43 PO; -SIMV20TA6 PO; -SODIUM CHLORIDE 0.9% 10ML VIAL ONE; -SPIR25TA4 PO; +SPIR25TA6 PO; -WARF4TAB39 PO; +WARF4TAB71 PO
[2019-09-03] MEDS ORDERED: FUROSEMIDE 20MG/2ML VIAL IVP ONE (10:45)
[2019-09-03] MEDS ORDERED: LEVOFLOXACIN 500MG PREMIX 100 ML IV ONE (10:45)
[2019-09-03 11:12] LABS: BASOPHILS % 0.3 % (0.0-2.0); EOSINOPHILS % 0.6 % (0.0-5.0); HEMOGLOBIN. 17.4 g/dL (12.0-16.0); LYMPHOCYTES % 50.1 % (20.0-50.0); MEAN CORPUSCULAR HEMOGLOBIN 31.6 pg (28.0-32.0); MEAN PLATELET VOLUME 11.8 fl (7.4-10.4); MONOCYTES % 6.6 % (2.0-8.0); NEUTROPHILS % 42.4 % (40.0-76.0); PLATELET 110 x1000/uL (130-400); RED BLOOD CELL COUNT 5.51 mill/uL (4.2-5.4); RED CELL DISTRIBUTION WIDTH 16.8 % (11.6-14.6)
[2019-09-03 11:17] LABS: INR 1.2; PROTHROMBIN TIME 13.4 sec (9.6-11.0)
[2019-09-03 11:29] LABS: CHLORIDE 103 mEq/L (98-107)
[2019-09-03] MEDS ORDERED: SUCCINYLCHOLINE CHLORIDE 200MG/10ML IV ONE (12:15)
[2019-09-03] MEDS ORDERED: MIDAZOLAM 50 MG in DEXTROSE 5% WATER 50ML IV ONE (12:15)
[2019-09-03] MEDS ORDERED: NOREPINEPHRINE 4 MG in DEXTROSE 5% WATER 250 ML IV ONE (12:15)
[2019-09-03] MEDS ORDERED: MIDAZOLAM HCL 50 MG in DEXTROSE 5% WATER 40 ML IV ONE (12:15)
[2019-09-03] MEDS ORDERED: ETOMIDATE 2MG/ML 10ML VIAL IV ONE (12:15)
[2019-09-03] MEDS ORDERED: LORAZEPAM 2MG/ML CPJ IV ONE (12:30)
[2019-09-03 14:31] LABS: CLARITY URINE CLOUDY (CLEAR); COLOR URINE DARK YELLOW (YELLOW); KETONES URINE 1+ (NEGATIVE); LEUKOCYTE ESTERASE URINE NEGATIVE (NEGATIVE); NITRITE URINE NEGATIVE (NEGATIVE); OCCULT BLOOD URINE 2+ (NEGATIVE); PH URINE 5.5 (4.5-8.0); PROTEIN URINE 1+ (NEGATIVE); SPECIFIC GRAVITY URINE 1.025 (1.005-1.030)
[2019-09-03] MEDS ORDERED: DEXTROSE 50% WATER 50ML SYRINGE IV PRN (16:30)
[2019-09-03] MEDS ORDERED: NOREPINEPHRINE 4MG/250ML PMX 250 ML IV ONE (16:45)
[2019-09-03] MEDS: BLOOD SUGAR DIAGNOSTIC STRIP TEST SCH ×2 (17:30→20:46)
[2019-09-03] MEDS: MIDAZOLAM HCL 50 MG in DEXTROSE 5% WATER 40 ML IV PRN ×2 (17:51→21:31)
[2019-09-03] MEDS: DEXT 5%/0.45% NACL 1000ML 1,000 ML IV SCH (17:52)
[2019-09-03] MEDS: INSULIN LISPRO 100 UNITS/ML SUBCUT SCH ×2 (18:00→20:46)
[2019-09-03 18:13] LABS: BG BASE EXCESS 0.2 mmol/L (-2.0-2.0); BG CARBOXYHEMOGLOBIN 0.1 % (0.5-1.5); BG DEOXYHEMOGLOBIN 0.2 % (0.0-5.0); BG FRACTION INSPIRED OXYGEN 100; BG HCO3 ACT 23.2 mmol/L (22.0-26.0); BG METHEMOGLOBIN 0.3 % (0.0-1.5); BG OXYGEN SATURATION 99.8 % (92.0-98.5); BG OXYHEMOGLOBIN 99.4 % (94.0-97.0); BG PCO2 33.3 mmHg (35.0-45.0); BG PH 7.461 (7.350-7.450); BG PO2 525.7 mmHg (75.0-100.0); BG SAMPLE SITE RIGHT RADIAL; BG TIDAL VOLUME(mL) 600 mL; BG TOTAL HEMOGLOBIN 16.4 g/dL (12.0-18.0); BG VENT MODE VENT - A/C; BG VENT RATE 14 set
[2019-09-03] MEDS: CEFTRIAXONE 1 G PREMIX 50 ML IV SCH (18:39)
[2019-09-03] MEDS: NOREPINEPHRINE 4 MG in DEXT 5% WATER 246 ML IV PRN (19:00)
[2019-09-03 19:48] LABS: CHLORIDE 102 mEq/L (98-107)
[2019-09-03] MEDS: PANTOPRAZOLE SODIUM 40 MG/VIAL IV SCH (20:57)
[2019-09-03] MEDS ORDERED: ENOXAPARIN 30MG/0.3ML SYR SUBCUT SCH (21:00)
[2019-09-03] MEDS: ENOXAPARIN 120MG/0.8ML SYR SUBCUT SCH (21:03)
[2019-09-03] MEDS: IPRATROPIUM/ALBUTEROL 0.5-3(2.5)MG/3ML NEB HHN SCH (21:11)
[2019-09-03] MEDS ORDERED: APIX5TAB MT (23:13)
[2019-09-04] VITALS (81 sets, daily range): BP systolic 32–156; BP diastolic 17–102
[2019-09-04] MEDS: IPRATROPIUM/ALBUTEROL 0.5-3(2.5)MG/3ML NEB HHN SCH ×6 (00:48→21:34)
[2019-09-04] MEDS: DEXT 5%/0.45% NACL 1000ML 1,000 ML IV SCH ×3 (02:45→21:51)
[2019-09-04] MEDS: CEFTRIAXONE 1 G PREMIX 50 ML IV SCH (05:03)
[2019-09-04 06:05] LABS: BASOPHILS % 0.3 % (0.0-2.0); EOSINOPHILS % 0.2 % (0.0-5.0); HEMATOCRIT. 48.4 % (36.0-48.0); HEMOGLOBIN. 16.1 g/dL (12.0-16.0); LYMPHOCYTES % 22.9 % (20.0-50.0); MEAN CORPUSCULAR HEMOGLOBIN 32.1 pg (28.0-32.0); MEAN CORPUSCULAR VOLUME 96.3 fL (81.0-99.0); MEAN PLATELET VOLUME 11.5 fl (7.4-10.4); NEUTROPHILS % 65.6 % (40.0-76.0); PLATELET 81 x1000/uL (130-400); RED BLOOD CELL COUNT 5.03 mill/uL (4.2-5.4)
[2019-09-04 06:45] LABS: CHLORIDE 102 mEq/L (98-107)
[2019-09-04] MEDS: INSULIN LISPRO 100 UNITS/ML SUBCUT SCH ×4 (07:45→21:00)
[2019-09-04] MEDS: BLOOD SUGAR DIAGNOSTIC STRIP TEST SCH ×4 (07:45→21:51)
[2019-09-04] MEDS: PANTOPRAZOLE SODIUM 40 MG/VIAL IV SCH (08:21)
[2019-09-04] MEDS: ENOXAPARIN 120MG/0.8ML SYR SUBCUT SCH (09:00)
[2019-09-04] MEDS ORDERED: PNEUMOCOCCAL 23-VAL P-SAC VAC 0.5 ML IM ONE (12:00)
[2019-09-04] MEDS ORDERED: INFLUENZA VIRUS VACCINE(AFLURIA) 0.5ML SYR IM ONE (12:00)
[2019-09-04] MEDS: FUROSEMIDE 40MG/4ML VIAL IVP SCH (12:37)
[2019-09-04] MEDS: MIDAZOLAM HCL 50 MG in DEXTROSE 5% WATER 40 ML IV PRN (14:48)
[2019-09-04] MEDS: CEFTRIAXONE 1,000 MG in DEXTROSE 5% WATER 50 ML IV SCH (17:40)
[2019-09-04] MEDS: CARVEDILOL 6.25 MG TABLET PO SCH (21:00)
[2019-09-04] MEDS: ATORVASTATIN CALCIUM 20MG TABLET PO SCH (21:51)
[2019-09-05] VITALS (80 sets, daily range): BP systolic 40–167; BP diastolic 17–116
[2019-09-05] MEDS: IPRATROPIUM/ALBUTEROL 0.5-3(2.5)MG/3ML NEB HHN SCH ×7 (00:50→23:30)
[2019-09-05] MEDS: MIDAZOLAM HCL 50 MG in DEXTROSE 5% WATER 40 ML IV PRN ×2 (04:21→15:20)
[2019-09-05] MEDS: BLOOD SUGAR DIAGNOSTIC STRIP TEST SCH ×4 (05:32→23:19)
[2019-09-05] MEDS: INSULIN LISPRO 100 UNITS/ML SUBCUT SCH ×3 (05:32→17:43)
[2019-09-05] MEDS: CEFTRIAXONE 1,000 MG in DEXTROSE 5% WATER 50 ML IV SCH ×2 (05:34→17:10)
[2019-09-05 07:24] LABS: BASOPHILS % 0.2 % (0.0-2.0); EOSINOPHILS % 0.2 % (0.0-5.0); HEMATOCRIT. 48.9 % (36.0-48.0); LYMPHOCYTES % 19.9 % (20.0-50.0); MEAN CORPUSCULAR HEMOGLOBIN 31.5 pg (28.0-32.0); MEAN CORPUSCULAR VOLUME 96.3 fL (81.0-99.0); MONOCYTES % 10.2 % (2.0-8.0); NEUTROPHILS % 69.5 % (40.0-76.0); RED BLOOD CELL COUNT 5.08 mill/uL (4.2-5.4); RED CELL DISTRIBUTION WIDTH 16.1 % (11.6-14.6)
[2019-09-05 08:13] LABS: CHLORIDE 101 mEq/L (98-107)
[2019-09-05] MEDS: PANTOPRAZOLE SODIUM 40 MG/VIAL IV SCH (08:22)
[2019-09-05] MEDS: SPIRONOLACTONE 25MG TABLET PO SCH (08:22)
[2019-09-05] MEDS: CARVEDILOL 6.25 MG TABLET PO SCH ×2 (08:40→20:14)
[2019-09-05] MEDS: FUROSEMIDE 40MG/4ML VIAL IVP SCH ×2 (08:40→17:10)
[2019-09-05 09:19] LABS: PLATELET 78 x1000/uL (130-400)
[2019-09-05 10:21] LABS: BG BASE EXCESS 4.1 mmol/L (-2.0-2.0); BG DEOXYHEMOGLOBIN 2.1 % (0.0-5.0); BG FRACTION INSPIRED OXYGEN 30; BG HCO3 ACT 25.1 mmol/L (22.0-26.0); BG METHEMOGLOBIN 0.4 % (0.0-1.5); BG OXYGEN SATURATION 97.9 % (92.0-98.5); BG OXYHEMOGLOBIN 96.5 % (94.0-97.0); BG PCO2 28.3 mmHg (35.0-45.0); BG PH 7.565 (7.350-7.450); BG PO2 86.6 mmHg (75.0-100.0); BG SAMPLE SITE RIGHT RADIAL; BG TIDAL VOLUME(mL) 600 mL; BG TOTAL HEMOGLOBIN 15.8 g/dL (12.0-18.0); BG VENT MODE VENT - A/C; BG VENT RATE 14 set
[2019-09-05] MEDS: DEXT 5%/0.45% NACL 1000ML 1,000 ML IV SCH ×2 (10:43→21:35)
[2019-09-05] MEDS ORDERED: POTASSIUM CHLORIDE INJ 60 MEQ in DEXT 5% WATER 500 ML IV SCH (11:00)
[2019-09-05] MEDS ORDERED: MAGNESIUM 2 G PREMIX 50 ML IV SCH (11:00)
[2019-09-05] MEDS ORDERED: VANCOMYCIN 2,000 MG in DEXT 5% WATER 500 ML IV NR (21:30)
[2019-09-05] MEDS: ATORVASTATIN CALCIUM 20MG TABLET PO SCH (21:35)
[2019-09-05] MEDS: NOREPINEPHRINE 4 MG in DEXT 5% WATER 246 ML IV PRN (23:25)
[2019-09-06] VITALS (91 sets, daily range): BP systolic 56–124; BP diastolic 20–91
[2019-09-06] MEDS: MIDAZOLAM HCL 50 MG in DEXTROSE 5% WATER 40 ML IV PRN ×2 (00:44→15:31)
[2019-09-06] MEDS: IPRATROPIUM/ALBUTEROL 0.5-3(2.5)MG/3ML NEB HHN SCH ×5 (05:09→22:03)
[2019-09-06] MEDS: BLOOD SUGAR DIAGNOSTIC STRIP TEST SCH ×3 (05:21→16:41)
[2019-09-06] MEDS: CEFTRIAXONE 1,000 MG in DEXTROSE 5% WATER 50 ML IV SCH ×2 (05:21→16:41)
[2019-09-06] MEDS: INSULIN LISPRO 100 UNITS/ML SUBCUT SCH ×4 (05:30→17:01)
[2019-09-06 07:19] LABS: BASOPHILS % 0.3 % (0.0-2.0); EOSINOPHILS % 0.3 % (0.0-5.0); HEMATOCRIT. 45.7 % (36.0-48.0); HEMOGLOBIN. 15.3 g/dL (12.0-16.0); LYMPHOCYTES % 15.2 % (20.0-50.0); MEAN CORPUSCULAR HEMOGLOBIN 31.8 pg (28.0-32.0); MEAN CORPUSCULAR VOLUME 95.1 fL (81.0-99.0); MEAN PLATELET VOLUME 12.3 fl (7.4-10.4); MONOCYTES % 9.3 % (2.0-8.0); NEUTROPHILS % 74.9 % (40.0-76.0); PLATELET 74 x1000/uL (130-400); RED CELL DISTRIBUTION WIDTH 16.1 % (11.6-14.6)
[2019-09-06 07:21] LABS: INR 1.1
[2019-09-06 07:47] LABS: CHLORIDE 104 mEq/L (98-107)
[2019-09-06] MEDS: SPIRONOLACTONE 25MG TABLET PO SCH ×2 (09:00→15:31)
[2019-09-06] MEDS: CARVEDILOL 6.25 MG TABLET PO SCH ×2 (09:00→20:55)
[2019-09-06] MEDS: FUROSEMIDE 40MG/4ML VIAL IVP SCH ×2 (09:00→16:41)
[2019-09-06 09:10] LABS: BG BASE EXCESS 4.4 mmol/L (-2.0-2.0); BG CARBOXYHEMOGLOBIN 0.8 % (0.5-1.5); BG DEOXYHEMOGLOBIN 2.1 % (0.0-5.0); BG FRACTION INSPIRED OXYGEN 30; BG HCO3 ACT 25.6 mmol/L (22.0-26.0); BG METHEMOGLOBIN 0.3 % (0.0-1.5); BG OXYGEN SATURATION 97.9 % (92.0-98.5); BG OXYHEMOGLOBIN 96.8 % (94.0-97.0); BG PH 7.563 (7.350-7.450); BG PO2 90.4 mmHg (75.0-100.0); BG SAMPLE SITE RIGHT RADIAL; BG TIDAL VOLUME(mL) 600 mL; BG TOTAL HEMOGLOBIN 15.9 g/dL (12.0-18.0); BG VENT MODE VENT - A/C; BG VENT RATE 14 set
[2019-09-06] MEDS: PANTOPRAZOLE SODIUM 40 MG/VIAL IV SCH (09:28)
[2019-09-06] MEDS: VANCOMYCIN 1 G PREMIX 200 ML IV SCH ×2 (09:28→21:19)
[2019-09-06] MEDS ORDERED: POTASSIUM CHLORIDE INJ 60 MEQ in DEXT 5% WATER 500 ML IV ONE (10:00)
[2019-09-06] MEDS ORDERED: HYDRALAZINE 20MG/ML VIAL IV PRN (15:15)
[2019-09-06] MEDS: NOREPINEPHRINE 4 MG in DEXT 5% WATER 246 ML IV PRN (15:30)
[2019-09-06] MEDS ORDERED: FUROSEMIDE 40MG/4ML VIAL IVP NR (16:00)
[2019-09-06] MEDS: ATORVASTATIN CALCIUM 20MG TABLET PO SCH (21:18)
[2019-09-06] MEDS: DEXT 5%/0.45% NACL 1000ML 1,000 ML IV SCH (23:59)
[2019-09-07] VITALS (85 sets, daily range): BP systolic 48–133; BP diastolic 19–92
[2019-09-07] MEDS: BLOOD SUGAR DIAGNOSTIC STRIP TEST SCH ×4 (00:33→18:09)
[2019-09-07] MEDS: IPRATROPIUM/ALBUTEROL 0.5-3(2.5)MG/3ML NEB HHN SCH ×6 (01:34→21:42)
[2019-09-07] MEDS: MIDAZOLAM HCL 50 MG in DEXTROSE 5% WATER 40 ML IV PRN (03:20)
[2019-09-07] MEDS: INSULIN LISPRO 100 UNITS/ML SUBCUT SCH ×4 (06:00→18:00)
[2019-09-07] MEDS: NOREPINEPHRINE 4 MG in DEXT 5% WATER 246 ML IV PRN ×2 (06:05→13:57)
[2019-09-07] MEDS: CEFTRIAXONE 1,000 MG in DEXTROSE 5% WATER 50 ML IV SCH (06:06)
[2019-09-07 06:21] LABS: BASOPHILS % 0.2 % (0.0-2.0); EOSINOPHILS % 0.4 % (0.0-5.0); HEMATOCRIT. 45.4 % (36.0-48.0); LYMPHOCYTES % 17.4 % (20.0-50.0); MEAN CORPUSCULAR HEMOGLOBIN 31.8 pg (28.0-32.0); MEAN CORPUSCULAR VOLUME 96.4 fL (81.0-99.0); MEAN PLATELET VOLUME 12.6 fl (7.4-10.4); MONOCYTES % 10.6 % (2.0-8.0); NEUTROPHILS % 71.4 % (40.0-76.0); PLATELET 75 x1000/uL (130-400); RED BLOOD CELL COUNT 4.71 mill/uL (4.2-5.4); RED CELL DISTRIBUTION WIDTH 16.4 % (11.6-14.6)
[2019-09-07 06:31] LABS: CHLORIDE 102 mEq/L (98-107)
[2019-09-07 06:46] LABS: T4 FREE 1.64 ng/dL (0.76-1.46)
[2019-09-07] MEDS: CARVEDILOL 6.25 MG TABLET PO SCH ×2 (09:00→20:55)
[2019-09-07 09:20] LABS: BG BASE EXCESS 5.9 mmol/L (-2.0-2.0); BG CARBOXYHEMOGLOBIN 0.8 % (0.5-1.5); BG DEOXYHEMOGLOBIN 8.7 % (0.0-5.0); BG FRACTION INSPIRED OXYGEN 30; BG HCO3 ACT 29.2 mmol/L (22.0-26.0); BG METHEMOGLOBIN 0.4 % (0.0-1.5); BG OXYGEN SATURATION 91.2 % (92.0-98.5); BG OXYHEMOGLOBIN 90.1 % (94.0-97.0); BG PCO2 38.1 mmHg (35.0-45.0); BG PH 7.503 (7.350-7.450); BG PO2 52.6 mmHg (75.0-100.0); BG SAMPLE SITE RIGHT RADIAL; BG TIDAL VOLUME(mL) 500 mL; BG TOTAL HEMOGLOBIN 15.2 g/dL (12.0-18.0); BG VENT MODE VENT - A/C; BG VENT RATE 14 set
[2019-09-07] MEDS: POTASSIUM CHLORIDE 20MEQ TABLET SR PO SCH (09:24)
[2019-09-07] MEDS: SPIRONOLACTONE 25MG TABLET PO SCH (09:24)
[2019-09-07] MEDS: PANTOPRAZOLE SODIUM 40 MG/VIAL IV SCH (09:33)
[2019-09-07] MEDS: FUROSEMIDE 40MG/4ML VIAL IVP SCH ×2 (11:22→16:33)
[2019-09-07] MEDS ORDERED: LORAZEPAM 2MG/ML CPJ IV PRN (12:30)
[2019-09-07] MEDS: CEFEPIME 1,000 MG in DEXTROSE 5% WATER 50 ML IV SCH (16:33)
[2019-09-07] MEDS: MORPHINE SULFATE 2 MG/ML CPJ (NOT FOR IM USE) IV PRN (20:53)
[2019-09-07] MEDS: METRONIDAZOLE 500MG TABLET PO SCH (20:54)
[2019-09-07] MEDS: ATORVASTATIN CALCIUM 20MG TABLET PO SCH (20:54)
[2019-09-07] MEDS ORDERED: VANCOMYCIN 1 G PREMIX 200 ML IV SCH (23:00)
[2019-09-08] VITALS (96 sets, daily range): BP systolic 66–162; BP diastolic 16–110
[2019-09-08] MEDS: MORPHINE SULFATE 2 MG/ML CPJ (NOT FOR IM USE) IV PRN (00:53)
[2019-09-08] MEDS: IPRATROPIUM/ALBUTEROL 0.5-3(2.5)MG/3ML NEB HHN SCH ×6 (01:10→20:30)
[2019-09-08] MEDS: DEXT 5%/0.45% NACL 1000ML 1,000 ML IV SCH (01:51)
[2019-09-08] MEDS: MIDAZOLAM HCL 50 MG in DEXTROSE 5% WATER 40 ML IV PRN (03:03)
[2019-09-08] MEDS: NOREPINEPHRINE 4 MG in DEXT 5% WATER 246 ML IV PRN ×3 (03:04→16:02)
[2019-09-08] MEDS: CEFEPIME 1,000 MG in DEXTROSE 5% WATER 50 ML IV SCH ×2 (04:58→17:18)
[2019-09-08] MEDS: INSULIN LISPRO 100 UNITS/ML SUBCUT SCH ×4 (06:00→17:16)
[2019-09-08] MEDS: BLOOD SUGAR DIAGNOSTIC STRIP TEST SCH ×4 (06:50→17:04)
[2019-09-08 06:58] LABS: BASOPHILS % 0.2 % (0.0-2.0); EOSINOPHILS % 0.6 % (0.0-5.0); HEMATOCRIT. 41.7 % (36.0-48.0); HEMOGLOBIN. 13.9 g/dL (12.0-16.0); LYMPHOCYTES % 20.5 % (20.0-50.0); MEAN PLATELET VOLUME 12.6 fl (7.4-10.4); MONOCYTES % 12.8 % (2.0-8.0); NEUTROPHILS % 65.9 % (40.0-76.0); PLATELET 67 x1000/uL (130-400); RED BLOOD CELL COUNT 4.35 mill/uL (4.2-5.4)
[2019-09-08] MEDS: CARVEDILOL 6.25 MG TABLET PO SCH ×2 (09:00→20:43)
[2019-09-08] MEDS: FUROSEMIDE 40MG/4ML VIAL IVP SCH ×2 (09:22→17:07)
[2019-09-08] MEDS: METRONIDAZOLE 500MG TABLET PO SCH ×2 (09:22→20:44)
[2019-09-08] MEDS: PANTOPRAZOLE SODIUM 40 MG/VIAL IV SCH (09:22)
[2019-09-08] MEDS: POTASSIUM CHLORIDE 20MEQ TABLET SR PO SCH (09:22)
[2019-09-08] MEDS: SPIRONOLACTONE 25MG TABLET PO SCH (09:22)
[2019-09-08 11:41] LABS: BG BASE EXCESS 5.8 mmol/L (-2.0-2.0); BG CARBOXYHEMOGLOBIN 0.8 % (0.5-1.5); BG DEOXYHEMOGLOBIN 2.4 % (0.0-5.0); BG FRACTION INSPIRED OXYGEN 50; BG HCO3 ACT 32.3 mmol/L (22.0-26.0); BG METHEMOGLOBIN 0.3 % (0.0-1.5); BG OXYGEN SATURATION 97.6 % (92.0-98.5); BG OXYHEMOGLOBIN 96.5 % (94.0-97.0); BG PCO2 54.1 mmHg (35.0-45.0); BG PH 7.394 (7.350-7.450); BG PO2 96.2 mmHg (75.0-100.0); BG PRESSURE SUPPORT 10; BG SAMPLE SITE RIGHT RADIAL; BG VENT MODE VENT - CPAP
[2019-09-08] MEDS: ATORVASTATIN CALCIUM 20MG TABLET PO SCH (20:43)
[2019-09-09] VITALS (77 sets, daily range): BP systolic 65–139; BP diastolic 38–91
[2019-09-09] MEDS: IPRATROPIUM/ALBUTEROL 0.5-3(2.5)MG/3ML NEB HHN SCH ×6 (00:15→21:13)
[2019-09-09] MEDS: NOREPINEPHRINE 4 MG in DEXT 5% WATER 246 ML IV PRN ×2 (02:16→06:57)
[2019-09-09] MEDS: CEFEPIME 1,000 MG in DEXTROSE 5% WATER 50 ML IV SCH ×2 (04:26→16:37)
[2019-09-09] MEDS: MORPHINE SULFATE 2 MG/ML CPJ (NOT FOR IM USE) IV PRN ×2 (04:26→19:37)
[2019-09-09] MEDS: INSULIN LISPRO 100 UNITS/ML SUBCUT SCH ×5 (06:00→23:27)
[2019-09-09] MEDS: BLOOD SUGAR DIAGNOSTIC STRIP TEST SCH ×5 (06:00→23:18)
[2019-09-09 06:32] LABS: HEMATOCRIT. 42.2 % (36.0-48.0); HEMOGLOBIN. 13.9 g/dL (12.0-16.0); MEAN CORPUSCULAR HEMOGLOBIN 32.4 pg (28.0-32.0); MEAN CORPUSCULAR VOLUME 98.4 fL (81.0-99.0); RED BLOOD CELL COUNT 4.29 mill/uL (4.2-5.4); RED CELL DISTRIBUTION WIDTH 16.6 % (11.6-14.6)
[2019-09-09 06:35] LABS: CHLORIDE 97 mEq/L (98-107)
[2019-09-09] MEDS: CARVEDILOL 6.25 MG TABLET PO SCH (09:00)
[2019-09-09] MEDS: PANTOPRAZOLE SODIUM 40 MG/VIAL IV SCH (09:24)
[2019-09-09] MEDS: FUROSEMIDE 40MG/4ML VIAL IVP SCH ×2 (09:24→16:37)
[2019-09-09] MEDS: POTASSIUM CHLORIDE 20MEQ TABLET SR PO SCH (09:25)
[2019-09-09] MEDS: SPIRONOLACTONE 25MG TABLET PO SCH (09:25)
[2019-09-09] MEDS: METRONIDAZOLE 500MG TABLET PO SCH ×2 (09:27→20:50)
[2019-09-09 09:43] LABS: PLATELET 80 x1000/uL (130-400)
[2019-09-09 09:46] LABS: BG BASE EXCESS 6.7 mmol/L (-2.0-2.0); BG CARBOXYHEMOGLOBIN 0.6 % (0.5-1.5); BG DEOXYHEMOGLOBIN 1.6 % (0.0-5.0); BG FRACTION INSPIRED OXYGEN 50; BG HCO3 ACT 33.9 mmol/L (22.0-26.0); BG METHEMOGLOBIN 0.4 % (0.0-1.5); BG OXYGEN SATURATION 98.4 % (92.0-98.5); BG OXYHEMOGLOBIN 97.4 % (94.0-97.0); BG PH 7.377 (7.350-7.450); BG PO2 121.3 mmHg (75.0-100.0); BG PRESSURE SUPPORT 10; BG SAMPLE SITE RIGHT RADIAL; BG TOTAL HEMOGLOBIN 14.8 g/dL (12.0-18.0); BG VENT MODE VENT - CPAP
[2019-09-09 09:46] LABS: NUCLEATED RED BLOOD CELLS 1 /100 WBC; PLATELET ESTIMATE DECREASED
[2019-09-09] MEDS: NOREPINEPHRINE IV PRN ×2 (11:36→19:33)
[2019-09-09] MEDS: WATER IV PRN ×2 (11:36→19:33)
[2019-09-09] MEDS: DEXT 5% IV PRN ×2 (11:36→19:33)
[2019-09-09] MEDS: ACETAMINOPHEN 650MG/20.3ML UDC PO PRN (14:42)
[2019-09-09] MEDS ORDERED: MIDODRINE HCL 5MG TABLET PO SCH ×2 (18:00→22:30)
[2019-09-09] MEDS: ATORVASTATIN CALCIUM 20MG TABLET PO SCH (20:50)
[2019-09-09] MEDS: LORAZEPAM 2MG/ML CPJ IV PRN (21:26)
[2019-09-10] VITALS (96 sets, daily range): BP systolic 89–150; BP diastolic 44–97
[2019-09-10] MEDS: IPRATROPIUM/ALBUTEROL 0.5-3(2.5)MG/3ML NEB HHN SCH ×6 (00:43→20:13)
[2019-09-10] MEDS: NOREPINEPHRINE IV PRN (03:27)
[2019-09-10] MEDS: DEXT 5% IV PRN (03:27)
[2019-09-10] MEDS: WATER IV PRN (03:27)
[2019-09-10] MEDS: MIDODRINE HCL 5MG TABLET PO SCH ×3 (05:05→21:51)
[2019-09-10] MEDS: INSULIN LISPRO 100 UNITS/ML SUBCUT SCH ×3 (05:05→18:00)
[2019-09-10] MEDS: CEFEPIME 1,000 MG in DEXTROSE 5% WATER 50 ML IV SCH ×2 (05:05→16:55)
[2019-09-10] MEDS: BLOOD SUGAR DIAGNOSTIC STRIP TEST SCH ×3 (05:05→16:55)
[2019-09-10 06:38] LABS: BG BASE EXCESS 10.7 mmol/L (-2.0-2.0); BG CPAP (cmH2O) 0 cm(H2O); BG DEOXYHEMOGLOBIN 2.2 % (0.0-5.0); BG HCO3 ACT 39.6 mmol/L (22.0-26.0); BG METHEMOGLOBIN 0.2 % (0.0-1.5); BG OXYGEN SATURATION 97.8 % (92.0-98.5); BG OXYHEMOGLOBIN 96.6 % (94.0-97.0); BG PH 7.358 (7.350-7.450); BG PO2 99.4 mmHg (75.0-100.0); BG SAMPLE SITE RIGHT RADIAL; BG TOTAL HEMOGLOBIN 15.2 g/dL (12.0-18.0); BG VENT MODE VENT - CPAP
[2019-09-10] MEDS ORDERED: LIDOCAINE HCL 1% 20ML VIAL (Pyxis) INJ ONE (08:40)
[2019-09-10] MEDS: FUROSEMIDE 40MG/4ML VIAL IVP SCH (09:31)
[2019-09-10] MEDS: PANTOPRAZOLE SODIUM 40 MG/VIAL IV SCH (09:31)
[2019-09-10] MEDS: POTASSIUM CHLORIDE 20MEQ TABLET SR PO SCH (09:32)
[2019-09-10] MEDS: SPIRONOLACTONE 25MG TABLET PO SCH (09:32)
[2019-09-10] MEDS: METRONIDAZOLE 500MG TABLET PO SCH ×2 (09:33→20:26)
[2019-09-10] MEDS: MORPHINE SULFATE 2 MG/ML CPJ (NOT FOR IM USE) IV PRN ×2 (10:14→20:27)
[2019-09-10] MEDS: NOREPINEPHRINE 8 MG in DEXT 5% WATER 492 ML IV PRN ×2 (11:03→20:26)
[2019-09-10 13:23] LABS: BG BASE EXCESS 12.2 mmol/L (-2.0-2.0); BG CARBOXYHEMOGLOBIN 0.7 % (0.5-1.5); BG DEOXYHEMOGLOBIN 1.5 % (0.0-5.0); BG FRACTION INSPIRED OXYGEN 40; BG HCO3 ACT 40.5 mmol/L (22.0-26.0); BG METHEMOGLOBIN 0.4 % (0.0-1.5); BG OXYGEN SATURATION 98.5 % (92.0-98.5); BG OXYHEMOGLOBIN 97.4 % (94.0-97.0); BG PCO2 67.5 mmHg (35.0-45.0); BG PH 7.396 (7.350-7.450); BG PO2 114.5 mmHg (75.0-100.0); BG PRESSURE SUPPORT 10; BG SAMPLE SITE RIGHT RADIAL; BG TOTAL HEMOGLOBIN 15.4 g/dL (12.0-18.0); BG VENT MODE VENT - CPAP
[2019-09-10] MEDS: ATORVASTATIN CALCIUM 20MG TABLET PO SCH (20:26)
[2019-09-10] MEDS ORDERED: METOCLOPRAMIDE HCL 10MG/2ML VIAL IV PRN (21:45)
[2019-09-11] VITALS (37 sets, daily range): BP systolic 77–154; BP diastolic 32–99
[2019-09-11] MEDS ORDERED: METOCLOPRAMIDE HCL 10MG/2ML VIAL IV SCH
[2019-09-11] MEDS: IPRATROPIUM/ALBUTEROL 0.5-3(2.5)MG/3ML NEB HHN SCH ×6 (00:08→19:59)
[2019-09-11] MEDS: BLOOD SUGAR DIAGNOSTIC STRIP TEST SCH ×4 (05:36→17:34)
[2019-09-11] MEDS: CEFEPIME 1,000 MG in DEXTROSE 5% WATER 50 ML IV SCH ×2 (05:36→16:40)
[2019-09-11] MEDS: MIDODRINE HCL 5MG TABLET PO SCH ×3 (05:36→21:20)
[2019-09-11] MEDS: INSULIN LISPRO 100 UNITS/ML SUBCUT SCH ×4 (06:00→17:34)
[2019-09-11 06:17] LABS: HEMATOCRIT. 41.9 % (36.0-48.0); HEMOGLOBIN. 13.9 g/dL (12.0-16.0); MEAN CORPUSCULAR HEMOGLOBIN 32.6 pg (28.0-32.0); MEAN PLATELET VOLUME 11.8 fl (7.4-10.4); PLATELET 94 x1000/uL (130-400); RED BLOOD CELL COUNT 4.28 mill/uL (4.2-5.4); RED CELL DISTRIBUTION WIDTH 15.4 % (11.6-14.6)
[2019-09-11 06:24] LABS: CHLORIDE 92 mEq/L (98-107)
[2019-09-11] MEDS: ACETAMINOPHEN 650MG/20.3ML UDC PO PRN (07:11)
[2019-09-11] MEDS: SPIRONOLACTONE 25MG TABLET PO SCH (09:00)
[2019-09-11] MEDS: ONDANSETRON HCL 4MG/2ML INJ IV PRN (09:18)
[2019-09-11] MEDS: PANTOPRAZOLE SODIUM 40 MG/VIAL IV SCH (09:18)
[2019-09-11] MEDS: FUROSEMIDE 40MG/4ML VIAL IVP SCH (09:18)
[2019-09-11] MEDS: METRONIDAZOLE 500MG TABLET PO SCH ×2 (09:18→21:21)
[2019-09-11 12:37] LABS: PLATELET ESTIMATE DECREASED
[2019-09-11] MEDS: ATORVASTATIN CALCIUM 20MG TABLET PO SCH (21:20)
[2019-09-11] MEDS: LORAZEPAM 2MG/ML CPJ IV PRN (21:48)
[2019-09-12] VITALS (11 sets, daily range): BP systolic 102–127; BP diastolic 56–77
[2019-09-12] MEDS: ONDANSETRON HCL 4MG/2ML INJ IV PRN (00:55)
[2019-09-12] MEDS: BLOOD SUGAR DIAGNOSTIC STRIP TEST SCH ×4 (00:56→18:02)
[2019-09-12] MEDS: IPRATROPIUM/ALBUTEROL 0.5-3(2.5)MG/3ML NEB HHN SCH ×6 (04:20→20:50)
[2019-09-12] MEDS: CEFEPIME 1,000 MG in DEXTROSE 5% WATER 50 ML IV SCH ×2 (04:48→16:05)
[2019-09-12] MEDS: INSULIN LISPRO 100 UNITS/ML SUBCUT SCH ×4 (05:52→18:00)
[2019-09-12] MEDS: MIDODRINE HCL 5MG TABLET PO SCH ×3 (05:53→20:55)
[2019-09-12 06:37] LABS: HEMATOCRIT. 45.4 % (36.0-48.0); MEAN CORPUSCULAR HEMOGLOBIN 32.4 pg (28.0-32.0); MEAN CORPUSCULAR VOLUME 98.3 fL (81.0-99.0); MEAN PLATELET VOLUME 11.3 fl (7.4-10.4); PLATELET 108 x1000/uL (130-400); RED BLOOD CELL COUNT 4.62 mill/uL (4.2-5.4); RED CELL DISTRIBUTION WIDTH 15.8 % (11.6-14.6)
[2019-09-12 06:59] LABS: CHLORIDE 91 mEq/L (98-107)
[2019-09-12] MEDS: PANTOPRAZOLE SODIUM 40 MG/VIAL IV SCH (09:11)
[2019-09-12] MEDS: FUROSEMIDE 40MG/4ML VIAL IVP SCH (09:11)
[2019-09-12] MEDS: METRONIDAZOLE 500MG TABLET PO SCH ×2 (09:12→20:54)
[2019-09-12] MEDS: SPIRONOLACTONE 25MG TABLET PO SCH (09:12)
[2019-09-12 11:28] LABS: PLATELET ESTIMATE DECREASED
[2019-09-12] MEDS: ACETAMINOPHEN 650MG/20.3ML UDC PO PRN (11:43)
[2019-09-12 11:45] LABS: BG BASE EXCESS 9.8 mmol/L (-2.0-2.0); BG CARBOXYHEMOGLOBIN 0.9 % (0.5-1.5); BG DEOXYHEMOGLOBIN 10.4 % (0.0-5.0); BG FRACTION INSPIRED OXYGEN 21; BG HCO3 ACT 36.8 mmol/L (22.0-26.0); BG METHEMOGLOBIN 0.4 % (0.0-1.5); BG OXYGEN SATURATION 89.5 % (92.0-98.5); BG OXYHEMOGLOBIN 88.3 % (94.0-97.0); BG PO2 54.5 mmHg (75.0-100.0); BG SAMPLE SITE RIGHT BRACHIAL; BG TOTAL HEMOGLOBIN 15.6 g/dL (12.0-18.0); BG VENT MODE ROOM AIR
[2019-09-12] MEDS: ATORVASTATIN CALCIUM 20MG TABLET PO SCH (20:54)
[2019-09-13] VITALS: BP 121/90
[2019-09-13] MEDS: IPRATROPIUM/ALBUTEROL 0.5-3(2.5)MG/3ML NEB HHN SCH ×5 (00:40→21:14)
[2019-09-13 02:00] VITALS: BP 118/68
[2019-09-13 04:00] VITALS: BP 126/78
[2019-09-13] MEDS: ONDANSETRON HCL 4MG/2ML INJ IV PRN (04:46)
[2019-09-13] MEDS: ACETAMINOPHEN 650MG/20.3ML UDC PO PRN (04:46)
[2019-09-13] MEDS: MIDODRINE HCL 5MG TABLET PO SCH ×3 (05:02→21:32)
[2019-09-13] MEDS: BLOOD SUGAR DIAGNOSTIC STRIP TEST SCH ×4 (05:11→16:40)
[2019-09-13] MEDS: INSULIN LISPRO 100 UNITS/ML SUBCUT SCH ×4 (05:11→16:41)
[2019-09-13 06:46] LABS: HEMATOCRIT. 44.4 % (36.0-48.0); HEMOGLOBIN. 14.5 g/dL (12.0-16.0); MEAN CORPUSCULAR HEMOGLOBIN 32.3 pg (28.0-32.0); MEAN PLATELET VOLUME 10.8 fl (7.4-10.4); PLATELET 103 x1000/uL (130-400); RED BLOOD CELL COUNT 4.49 mill/uL (4.2-5.4); RED CELL DISTRIBUTION WIDTH 15.5 % (11.6-14.6)
[2019-09-13 07:50] LABS: CHLORIDE 92 mEq/L (98-107)
[2019-09-13 08:00] VITALS: BP 125/30
[2019-09-13] MEDS: FUROSEMIDE 40MG/4ML VIAL IVP SCH (08:30)
[2019-09-13] MEDS: PANTOPRAZOLE SODIUM 40 MG/VIAL IV SCH (08:30)
[2019-09-13] MEDS: SPIRONOLACTONE 25MG TABLET PO SCH (08:35)
[2019-09-13] MEDS: METRONIDAZOLE 500MG TABLET PO SCH ×3 (08:36→21:00)
[2019-09-13 11:13] LABS: PLATELET ESTIMATE DECREASED
[2019-09-13] MEDS ORDERED: ALBU90AE INH (13:20)
[2019-09-13] MEDS ORDERED: APIX5TAB MT (13:20)
[2019-09-13] MEDS ORDERED: FURO-151 MT (13:20)
[2019-09-13] MEDS: APIXABAN 5 MG TABLET PO SCH (16:40)
[2019-09-13 20:00] VITALS: BP 129/62
[2019-09-13] MEDS: ATORVASTATIN CALCIUM 20MG TABLET PO SCH (21:00)
[2019-09-14] VITALS: BP 121/54
[2019-09-14] MEDS: IPRATROPIUM/ALBUTEROL 0.5-3(2.5)MG/3ML NEB HHN SCH ×6 (00:26→20:42)
[2019-09-14] MEDS: ONDANSETRON HCL 4MG/2ML INJ IV PRN (03:23)
[2019-09-14] MEDS: ACETAMINOPHEN 650MG/20.3ML UDC PO PRN (03:23)
[2019-09-14 04:00] VITALS: BP 126/74
[2019-09-14] MEDS: MIDODRINE HCL 5MG TABLET PO SCH ×3 (05:48→21:56)
[2019-09-14] MEDS: INSULIN LISPRO 100 UNITS/ML SUBCUT SCH ×4 (06:00→17:39)
[2019-09-14] MEDS: BLOOD SUGAR DIAGNOSTIC STRIP TEST SCH ×4 (06:00→17:39)
[2019-09-14 08:00] VITALS: BP 104/45
[2019-09-14] MEDS: APIXABAN 5 MG TABLET PO SCH ×2 (08:53→17:50)
[2019-09-14] MEDS: METRONIDAZOLE 500MG TABLET PO SCH ×2 (09:00→21:54)
[2019-09-14] MEDS: SPIRONOLACTONE 25MG TABLET PO SCH (09:00)
[2019-09-14] MEDS: FUROSEMIDE 40MG/4ML VIAL IVP SCH (09:00)
[2019-09-14] MEDS: PANTOPRAZOLE SODIUM 40 MG/VIAL IV SCH (09:00)
[2019-09-14 12:00] VITALS: BP 112/55
[2019-09-14 20:00] VITALS: BP 135/64
[2019-09-14] MEDS: ATORVASTATIN CALCIUM 20MG TABLET PO SCH (21:54)
[2019-09-15] VITALS: BP 129/24
[2019-09-15] MEDS: BLOOD SUGAR DIAGNOSTIC STRIP TEST SCH ×2 (00:29→05:40)
[2019-09-15] MEDS: IPRATROPIUM/ALBUTEROL 0.5-3(2.5)MG/3ML NEB HHN SCH ×4 (00:46→12:55)
[2019-09-15 04:00] VITALS: BP 124/77
[2019-09-15] MEDS: INSULIN LISPRO 100 UNITS/ML SUBCUT SCH ×2 (05:40)
[2019-09-15] MEDS: MIDODRINE HCL 5MG TABLET PO SCH (05:40)
[2019-09-15 08:00] VITALS: BP 107/68
[2019-09-15] MEDS: PANTOPRAZOLE SODIUM 40 MG/VIAL IV SCH (09:00)
[2019-09-15] MEDS: APIXABAN 5 MG TABLET PO SCH (09:00)
[2019-09-15] MEDS: FUROSEMIDE 40MG/4ML VIAL IVP SCH (09:00)
[2019-09-15] MEDS: SPIRONOLACTONE 25MG TABLET PO SCH (09:00)
[2019-09-15 10:00] VITALS: BP 99/58
[2019-09-15 14:00] VITALS: BP 126/69
== END 2019-09-15 17:55 | disposition hospice, home (50) | DRG 870 ==
LOC: ER 10:37 → 5EST 12:23 → EDBEDREQ 12:57 → EDBEDREQSVC 12:57 → EDBEDREQTM 12:57 → ENRESERV 14:18 → 5EST 16:17 → UNDODISIN 09-15 13:30 → 5EST 09-15 15:09
PROVIDERS: ADMIT Internal Medicine; ATTEND Internal Medicine
PROC: 5A1955Z Respiratory Ventilation, Greater than 96 Consecutive Hours (ICD-10-PCS; principal; 2019-09-03)
PROC: 0BH17EZ Insertion of Endotracheal Airway into Trachea, Via Natural or Artificial Opening (ICD-10-PCS; 2019-09-03)
PROC: 06HY33Z Insertion of Infusion Device into Lower Vein, Percutaneous Approach (ICD-10-PCS; 2019-09-03)
PROC: 05HY33Z Insertion of Infusion Device into Upper Vein, Percutaneous Approach (ICD-10-PCS; 2019-09-10)
PROC: B54MZZA Ultrasonography of Right Upper Extremity Veins, Guidance (ICD-10-PCS; 2019-09-10)
DX: A41.1 Sepsis due to other specified staphylococcus (principal); J96.01 Acute respiratory failure with hypoxia; I50.23 Acute on chronic systolic (congestive) heart failure; J69.0 Pneumonitis due to inhalation of food and vomit; J96.02 Acute respiratory failure with hypercapnia; I42.0 Dilated cardiomyopathy; E87.1 Hypo-osmolality and hyponatremia; G93.40 Encephalopathy, unspecified; R57.9 Shock, unspecified; I31.3 Pericardial effusion (noninflammatory); J91.8 Pleural effusion in other conditions classified elsewhere; D69.6 Thrombocytopenia, unspecified; E78.5 Hyperlipidemia, unspecified; E87.5 Hyperkalemia; I11.0 Hypertensive heart disease with heart failure; I25.10 Atherosclerotic heart disease of native coronary artery without angina pectoris; I48.91 Unspecified atrial fibrillation; E11.9 Type 2 diabetes mellitus without complications; E83.42 Hypomagnesemia; E87.6 Hypokalemia; G40.909 Epilepsy, unspecified, not intractable, without status epilepticus; I27.81 Cor pulmonale (chronic); Z51.5 Encounter for palliative care; I49.5 Sick sinus syndrome; T50.2X5A Adverse effect of carbonic-anhydrase inhibitors, benzothiadiazides and other diuretics, initial encounter; Z20.828 Contact with and (suspected) exposure to other viral communicable diseases; N63.0 Unspecified lump in unspecified breast; Z79.01 Long term (current) use of anticoagulants; Z79.899 Other long term (current) drug therapy; Z86.711 Personal history of pulmonary embolism; Z86.718 Personal history of other venous thrombosis and embolism; Z86.73 Personal history of transient ischemic attack (TIA), and cerebral infarction without residual deficits; Z87.891 Personal history of nicotine dependence; Z95.810 Presence of automatic (implantable) cardiac defibrillator; Z95.828 Presence of other vascular implants and grafts; Y92.89 Other specified places as the place of occurrence of the external cause
CPT/HCPCS: 36415; 36600; 71045; 71250; 74176; 76937; 80048; 80053; 80076; 80202; 81003; 82375; 82378; 82805; 82962; 83036; 83605; 83735; 83880; 84132; 84145; 84439; 84443; 84484; 85025; 86300; 87070; 87635; 90686; 90732; 92610; 93005; 93306; 93970; 94002; 94003; 94640; 97162; 97166; 97530; 97535; 99291; C1725; C9113; J0692; J0696; J1650; J1815; J1940; J1956; J2060; J2250; J2270; J2405; J2765; J3370; J3475; J3480; J3490; J7060